=== PATIENT | male | born 1990 | race Two or more races ===

== ENCOUNTER 2016-11-07 12:10 | Outpatient (CLI) | payer OTHER | END 2016-11-07 12:11 | disposition home or self-care (01) | DX: M47.814 Spondylosis without myelopathy or radiculopathy, thoracic region (principal); M51.45 Schmorl's nodes, thoracolumbar region; M51.44 Schmorl's nodes, thoracic region; M51.36 Other intervertebral disc degeneration, lumbar region; M47.816 Spondylosis without myelopathy or radiculopathy, lumbar region; M43.16 Spondylolisthesis, lumbar region ==

== ENCOUNTER 2016-11-23 06:46 | Emergency (ER) | payer OTHER ==
[2016-11-23] MEDS ORDERED: ONDANSETRON ODT 4 MG TABLET TL STA (07:13)
[2016-11-23] MEDS ORDERED: ONDANSETRON ODT 4 MG TABLET ONE (07:19)
== END 2016-11-23 08:05 | disposition home or self-care (01) ==
DX: K29.21 Alcoholic gastritis with bleeding (principal); F17.200 Nicotine dependence, unspecified, uncomplicated
CPT/HCPCS: 36415; 80053; 83690; 85025; 99283; 99284; Q0162

== ENCOUNTER 2017-12-17 22:31 | Emergency (ER) | payer OTHER ==
--- NOTE | 2017-12-17 23:05 | XRAY Report ---
EXAM: LEFT ANKLE RADIOGRAPHY EXAM DATE: 12/17/2017 10:54 PM. CLINICAL HISTORY: Inverted ankle during volleyball, pain COMPARISON: None. TECHNIQUE: 3 views. FINDINGS: Bones: Normal. No fractures or bone lesions. Joints: Normal. No effusion. No subluxations. The ankle mortise is normally aligned. Soft Tissues: Lateral soft tissue swelling. IMPRESSION: Mild lateral soft tissue swelling without evidence of a displaced fracture. [facility] Referring Provider Line: [phone] SITE ID: [id number]
--- NOTE | 2017-12-17 23:05 | XRAY Preliminary Report ---
Exam: XR ANKLE 3 VIEW LT IMPRESSION: Mild lateral soft tissue swelling without evidence of a displaced fracture. [facility] SITE ID: [id number]
[2017-12-18] MEDS ORDERED: IBUPROFEN 600 MG TABLET PO STA (00:20)
[2017-12-18 00:26] VITALS: BP 112/72
--- NOTE | 2017-12-18 00:43 | ED Physician Documentation ---
PD HPI LOWER EXT INJURY - Stated complaint Stated Complaint: L ANKLE INJURY - Chief complaint Chief Complaint: Trauma Ext - History obtained from History obtained from: Patient, Family - History of Present Illness PD HPI LOW EXT INJURY LOCATION: Left, Ankle Type of injury: Twist Where injury occurred: Park Timing - onset: Today Timing - details: Abrupt onset Worsened by: Moving, Palpating Similar symptoms before: Has not had sx before Recently seen: Not recently seen - Additional information Additional information: Patient is a 26 year old male with no significant past medical history who is presenting to the emergency department for ankle pain. Patient states that he was playing volleyball and he tried to stop and somebody ran into him and he twisted his ankle. patient denies any other trauma. Review of Systems Ten Systems: 10 systems reviewed and negative Musculoskeletal: reports: Extremity pain, Joint pain, Extremity swelling, Joint swelling PD PAST MEDICAL HISTORY - Past Medical History Past Medical History: Yes Musculoskeletal: Chronic back pain - Past Surgical History Past Surgical History: No - Present Medications Home Medications: Ambulatory Orders Medication Instructions Recorded Confirmed No Known Home Medications [No 12/18/17 12/18/17 Known Home Medications] - Allergies Allergies/Adverse Reactions: Allergies Allergy/AdvReac Type Severity Reaction Status Date / Time Penicillins Allergy Rash Verified 12/17/17 22:45 - Social History Does the pt smoke?: Yes Smoking Status: Current every day smoker Does the pt drink ETOH?: Yes Does the pt have substance abuse?: No - Immunizations Immunizations are current?: Yes - POLST Patient has POLST: No PD ED PE NORMAL - General General: Alert and oriented X 3, No acute distress - HEENT HEENT: Atraumatic - Cardiac Cardiac: RRR - Respiratory Respiratory: No respiratory distress - Derm Derm: Normal color, No rash - Neuro Neuro: Alert and oriented X 3, No motor deficit PD ED PE EXPANDED - Extremities Extremities: Left ankle (tenderness to palpation near lateral maleolus), Motor intact, Sensory intact, Vascular intact Results - Vitals Vitals: Vital Signs - 24 hr 12/17/17 12/18/17 22:42 00:25 Temperature 37.1 C Heart Rate 72 81 Respiratory 16 16 Rate Blood Pressure 128/86 H 112/72 O2 Saturation 99 97 Oxygen O2 Source Room air - Rads (name of study) ankle x-ray Radiology: Final report received (normal) PD MEDICAL DECISION MAKING - ED course Complexity details: reviewed old records, reviewed results, re-evaluated patient , considered differential, d/w patient ED course: Patient was seen and examined at bedside. patient had already gone to imaging and the results were reviewed. there was no acute fracture or dislocation. Patient was placed in an sandrine bandage, given ice and ibuprofen. Patient required no further work up and was stable for discharge with outpatient follow up. Departure - Departure Disposition: Home, Self Care Clinical Impression: Ankle injury Condition: Good Instructions: ED Sprain Ankle W X Ray Follow-Up: DIDI DEVI PA-C [Primary Care Provider] - As Needed Comments: Your diagnostics today were within normal limits. There is no acute fracture or dislocation. you should ice your ankle and alternate between motrin and tylenol as needed for pain. You should follow up with your doctor if your symptoms don't improve in the next few days. You may return to the emergency department at any time for new, worsening or uncontrollable symptoms. Discharge Date/Time: 12/18/17 00:40
== END 2017-12-18 00:40 | disposition home or self-care (01) ==
LOC: ED 22:31
DX: S99.912A Unspecified injury of left ankle, initial encounter (principal); X50.1XXA Overexertion from prolonged static or awkward postures, initial encounter; Y92.830 Public park as the place of occurrence of the external cause; Y93.68 Activity, volleyball (beach) (court); F17.200 Nicotine dependence, unspecified, uncomplicated
CPT/HCPCS: 73610; 99283; A9270

== ENCOUNTER 2018-02-20 09:00 | Emergency (ER) | payer OTHER ==
[2018-02-20] MEDS: SODIUM CHLORIDE 0.9% 1,000 ML IV ONE ×2 (09:33→10:25)
[2018-02-20 09:41] LABS: BILIRUBIN,URINE NEGATIVE (NEGATIVE); GLUCOSE, URINE (UA) NEGATIVE (NEGATIVE); KETONES,URINE (UA) 15 mg/dL (NEGATIVE); LEUKOCYTE ESTERASE, URINE NEGATIVE (NEGATIVE); NITRITE,URINE NEGATIVE (NEGATIVE); OCCULT BLOOD,URINE NEGATIVE (NEGATIVE); PH,URINE >=9.0 PH (5.0-7.5); PROTEIN,URINE 30 mg/dL (NEGATIVE); UROBILINOGEN,URINE 0.2 (NORMAL) E.U./dL (NORMAL)
[2018-02-20 09:49] LABS: CLARITY,URINE CLEAR (CLEAR)
[2018-02-20 09:51] LABS: BACTERIA,URINE Moderate /HPF (None Seen); RBC,URINE 0-5 /HPF (0-5); SQUAMOUS EPITHELIAL CELL,UR NONE SEEN (<= Few)
[2018-02-20 09:52] LABS: MUCUS,URINE Few Strands
[2018-02-20] MEDS ORDERED: SODIUM CHLORIDE 0.9% 1,000 ML IV ONE (09:54)
[2018-02-20 09:55] LABS: BASOPHILS # (AUTO) 0.1 10^3/uL (0.0-0.1); BASOPHILS % (AUTO) 0.6 %; EOSINOPHILS % (AUTO) 0.2 %; HGB - HEMOGLOBIN 16.2 g/dL (14.0-18.0); LYMPHOCYTES # (AUTO) 0.4 10^3/uL (1.5-3.5); LYMPHOCYTES % (AUTO) 4.5 %; MEAN CORPUSCULAR HEMOGLOBIN 30.6 pg (27.0-31.0); MEAN CORPUSCULAR HGB CONC 33.8 g/dL (32.0-36.0); MEAN CORPUSCULAR VOLUME 90.6 fL (80.0-94.0); MONOCYTES # (AUTO) 0.4 10^3/uL (0.0-1.0); MONOCYTES % (AUTO) 4.3 %; NEUTROPHILS # (AUTO) 8.2 10^3/uL (1.5-6.6); NEUTROPHILS % (AUTO) 90.4 %; PLT - PLATELET COUNT 193 10^3/uL (130-450); RED CELL DISTRIBUTION WIDTH 12.5 % (12.0-15.0); WHITE BLOOD COUNT 9.1 x10^3/uL (4.8-10.8)
--- NOTE | 2018-02-20 09:58 | ED Physician Documentation ---
PD HPI NVD - Stated complaint Stated Complaint: N/V/D - Chief complaint Chief Complaint: Abd Pain - History obtained from History obtained from: Patient - History of Present Illness Timing - onset: How many days ago (6) Timing - details: Still present Contributing factors: Travel (to [place].) Similar symptoms before: Has not had sx before - Additonal information Additional information: Patient is a 27-year-old old [employer] male who presents with vomiting and diarrhea. He reports vomiting intermittently for the past 6 days, starting when he was in [place]. He has had diarrhea for the past 2 days. He denies abdominal pain, fever, dysuria. He reports lightheadedness when standing. 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 He reports feeling quite stressed about having his daughters for the summer, stating he is worried about whether or not he is doing the right things for them. He denies history of similar symptoms in the past. Review of Systems Constitutional: denies: Fever Ears: denies: Tinnitus/ringing Nose: denies: Congestion Throat: denies: Sore throat Cardiac: denies: Chest pain / pressure Respiratory: denies: Dyspnea, Cough GI: reports: Nausea, Vomiting, Diarrhea. denies: Abdominal Pain : denies: Dysuria Skin: denies: Rash Musculoskeletal: denies: Back pain Neurologic: denies: Focal weakness, Numbness, Headache PD PAST MEDICAL HISTORY - Past Medical History Past Medical History: No Endocrine/Autoimmune: None Musculoskeletal: Chronic back pain - Past Surgical History Past Surgical History: No - Present Medications Home Medications: Ambulatory Orders Medication Instructions Recorded Confirmed Promethazine [Phenergan] 25 - 50 mg PO Q6H PRN #10 tab 02/20/18 raNITIdine [Zantac] 150 mg PO BID #30 tablet 02/20/18 - Allergies Allergies/Adverse Reactions: Allergies Allergy/AdvReac Type Severity Reaction Status Date / Time Penicillins Allergy Rash Verified 02/20/18 09:06 - Social History Does the pt smoke?: Yes Smoking Status: Current every day smoker Does the pt drink ETOH?: No Does the pt have substance abuse?: No - Immunizations Immunizations are current?: Yes - POLST Patient has POLST: No PD ED PE NORMAL - Vitals Vital signs reviewed: Yes (normal) - General General: Alert and oriented X 3, Well developed/nourished, Other (Appears fatigued.) - HEENT HEENT: Atraumatic, Pharynx benign - Neck Neck: Supple, no meningeal sign, No adenopathy - Cardiac Cardiac: RRR, No murmur - Respiratory Respiratory: No respiratory distress, Clear bilaterally - Abdomen Abdomen: Normal bowel sounds, Soft, Non tender, No organomegaly - Back Back: No CVA TTP - Derm Derm: No rash - Extremities Extremities: No edema, No calf tenderness / cord - Neuro Neuro: Alert and oriented X 3, No motor deficit, Normal speech Results - Vitals Vitals: Vital Signs - 24 hr 02/20/18 09:04 Temperature 36.8 C Heart Rate 85 Respiratory 18 Rate Blood Pressure 123/75 O2 Saturation 97 Oxygen O2 Source Room air - Labs Labs: Laboratory Tests 02/20/18 02/20/18 02/20/18 09:30 09:50 09:50 WBC 9.1 RBC 5.30 Hgb 16.2 Hct 48.0 MCV 90.6 MCH 30.6 MCHC 33.8 RDW 12.5 Plt Count 193 MPV 9.0 Neut # (Auto) 8.2 H Lymph # (Auto) 0.4 L [place] # (Auto) 0.4 Eos # (Auto) 0.0 Baso # (Auto) 0.1 Absolute Nucleated RBC 0.00 Nucleated RBC % 0.0 Sodium 138 Potassium 4.0 Chloride 101 Carbon Dioxide 26 Anion Gap 11.0 BUN 17 Creatinine 0.9 Estimated GFR (MDRD) 100 Glucose 129 H Calcium 9.0 Total Bilirubin 1.4 H AST 19 ALT 29 Alkaline Phosphatase 73 Total Protein 7.1 Albumin 4.3 Globulin 2.8 Albumin/Globulin Ratio 1.5 Lipase 18 L Urine Color DARK YELLOW Urine Clarity CLEAR Urine pH >=9.0 H Ur Specific [place] 1.015 Urine Protein 30 H Urine Glucose (UA) NEGATIVE Urine Ketones 15 H Urine Occult Blood NEGATIVE Urine Nitrite NEGATIVE Urine Bilirubin NEGATIVE Urine Urobilinogen 0.2 (NORMAL) Ur Leukocyte Esterase NEGATIVE Urine RBC 0-5 Urine WBC 0-3 Ur Squamous Epith Cells NONE SEEN Urine Bacteria Moderate H Urine Mucus Few Strands Ur Microscopic Review INDICATED Urine Culture Comments INDICATED PD MEDICAL DECISION MAKING - ED course Complexity details: reviewed results, re-evaluated patient, considered differential, d/w patient ED course: The patient's presentation is significant for vomiting and diarrhea, which is likely caused by viral etiology. Complicating the patient's presentation, however, is significant stress related to the care of his 3 daughters who he has for the summer, having picked them up from his ex- in [place] earlier this week. He has a past history of gastritis, and I suspect his current symptoms are associated with recurrent gastric distress. His laboratory evaluation is unremarkable. Treatment in the emergency department included administration of normal saline 2 L IV, and Zofran 4 mg IV. He felt subjectively improved by the time of discharge. He is being discharged with prescriptions for ranitidine and for Phenergan. I discussed with him symptomatic treatment, outpatient follow-up, as well as potentially worrisome signs or symptoms that should prompt reevaluation in the emergency department. [place] - Sepsis Event Vital Signs: Vital Signs - 24 hr 02/20/18 09:04 Temperature 36.8 C Heart Rate 85 Respiratory 18 Rate Blood Pressure 123/75 O2 Saturation 97 Oxygen O2 Source Room air Departure - Departure Disposition: 01 Home, Self Care Clinical Impression: Stress reaction, Dehydration Vomiting Qualifiers: Vomiting type: unspecified Vomiting Intractability: non-intractable Nausea presence: with nausea Qualified Code(s): R11.2 - Nausea with vomiting, unspecified Diarrhea Qualifiers: Diarrhea type: unspecified type Qualified Code(s): R19.7 - Diarrhea, unspecified Condition: Stable Instructions: ED Stress React, ED Diet Vomiting Diarrhea Follow-Up: TRESSA Engle [Provider Group] Prescriptions: Promethazine [Phenergan] 25 - 50 mg PO Q6H PRN #10 tab PRN Reason: Nausea / Vomiting raNITIdine [Zantac] 150 mg PO BID #30 tablet Comments: Take ranitidine twice daily as prescribed. You can use Phenergan as prescribed as needed for nausea. Drink plenty of fluids. Follow-up with your primary physician within 1-2 weeks. Call to schedule appointment. Return to the emergency department if you develop increasing abdominal pain, persistent vomiting, recurrent dehydration, or otherwise worsening symptoms.
[2018-02-20 10:10] LABS: ALBUMIN 4.3 g/dL (3.2-5.5); ALBUMIN/GLOBULIN RATIO 1.5 (1.0-2.2); BILIRUBIN,TOTAL 1.4 mg/dL (0.2-1.0); CREATININE 0.9 mg/dL (0.6-1.2); TOTAL PROTEIN 7.1 g/dL (6.7-8.2)
[2018-02-20] MEDS ORDERED: ONDANSETRON 4 MG/2 ML VIAL IVP STA (10:21)
[2018-02-20 11:22] VITALS: BP 127/75
== END 2018-02-20 11:26 | disposition home or self-care (01) ==
LOC: ED 09:00
DX: E86.0 Dehydration (principal); F43.9 Reaction to severe stress, unspecified; R11.2 Nausea with vomiting, unspecified; R19.7 Diarrhea, unspecified; F17.200 Nicotine dependence, unspecified, uncomplicated
CPT/HCPCS: 36415; 80053; 81001; 81003; 83690; 85025; 87086; 96361; 96374; 99283

== ENCOUNTER 2019-07-08 17:57 | Emergency (ER) | payer OTHER ==
[2019-07-08 18:06] VITALS: BP 142/94
--- NOTE | 2019-07-08 18:28 | ED Physician Documentation ---
PD HPI UPPER EXT INJURY - Stated complaint Stated Complaint: RT MIDDLE FINGER PX - Chief complaint Chief Complaint: Ext Problem - History obtained from History obtained from: Patient - History of Present Illness Location: Right (Cut his finger about a month ago. It was stitched. He has a swollen red area on the dorsum of the knuckle where the stitches were. No fevers.) Review of Systems Constitutional: reports: Reviewed and negative Throat: reports: Reviewed and negative Cardiac: reports: Reviewed and negative Respiratory: reports: Reviewed and negative PD PAST MEDICAL HISTORY - Past Medical History Past Medical History: Yes Endocrine/Autoimmune: None Musculoskeletal: Chronic back pain - Past Surgical History Past Surgical History: No - Present Medications Home Medications: Ambulatory Orders Medication Instructions Recorded Confirmed Promethazine [Phenergan] 25 - 50 mg PO Q6H PRN #10 tab 02/20/18 raNITIdine [Zantac] 150 mg PO BID #30 tablet 02/20/18 Clindamycin HCl [Clindamycin 300MG 300 mg PO Q6H #28 capsule 07/08/19 CAP] - Allergies Allergies/Adverse Reactions: Allergies Allergy/AdvReac Type Severity Reaction Status Date / Time Penicillins Allergy Rash Verified 07/08/19 18:05 - Social History Does the pt smoke?: Yes Smoking Status: Current every day smoker Does the pt drink ETOH?: No Does the pt have substance abuse?: No - Immunizations Immunizations are current?: Yes - POLST Patient has POLST: No PD ED PE NORMAL - Vitals Vital signs reviewed: Yes - General General: Alert and oriented X 3, No acute distress - Extremities Extremities: Other (Mild redness over dorsum of R middle finger at DIP. He does have a jackeline finger.) - Neuro Neuro: Alert and oriented X 3, Normal speech Results - Vitals Vitals: Vital Signs - 24 hr 07/08/19 18:03 Temperature 37 C Heart Rate 107 H Respiratory 16 Rate Blood Pressure 142/94 H O2 Saturation 100 Oxygen O2 Source Room air PD MEDICAL DECISION MAKING - ED course ED course: Placed in a jackeline finger splint. Nothing apparent to I/D right now. Departure - Departure Disposition: 01 Home, Self Care Clinical Impression: Cellulitis of finger of right hand Mallet finger Qualifiers: Laterality: right Qualified Code(s): M20.011 - Mallet finger of right finger(s) Condition: Good Record reviewed to determine appropriate education?: Yes Instructions: Cellulitis Dc Prescriptions: Clindamycin HCl [Clindamycin 300MG CAP] 300 mg PO Q6H #28 capsule Comments: Keep the splint on to hopefully let your tendon heal. Take the antibiotics as prescribed. Return with work if worse. 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
== END 2019-07-08 18:30 | disposition home or self-care (01) ==
LOC: ED 17:57
DX: L03.011 Cellulitis of right finger (principal); M20.011 Mallet finger of right finger(s); F17.200 Nicotine dependence, unspecified, uncomplicated
CPT/HCPCS: 99282; 99283

== ENCOUNTER 2020-09-15 02:49 | Emergency (ER) | payer OTHER ==
--- NOTE | 2020-09-15 02:55 | ED Physician Documentation ---
PD HPI ABD PAIN - Stated complaint Stated Complaint: ABD PX - History obtained from History obtained from: Patient - History of Present Illness Timing - onset: How many days ago (3) Timing - duration: Days Timing - details: Gradual onset, Waxing and waning Pain level now: 6 Quality: Pain Location: Epigastric Radiation: Other (does not radiate) Improved by: Vomiting Worsened by: Palpation Associated symptoms: Nausea, Vomiting. No: Fever, Diarrhea, Constipation Similar symptoms before: Has not had sx before Recently seen: Not recently seen - Additional information Additional information: c/o 3 days of epigastric pain with nausea, vomiting. He drank some alcohol tonight but has not drank any alcohol in a few weeks, and is not a heavy nor regular drinker. He says he was scoped July 2019 and had been on GI medications (can only recall one of them was omeprazole), but that he has been off of these for several months as the symptoms had resolved. Review of Systems Constitutional: denies: Fever, Chills, Sweats Cardiac: reports: Reviewed and negative Respiratory: reports: Reviewed and negative GI: reports: Abdominal Pain, Nausea, Vomiting. denies: Abdominal Swelling, Constipation, Diarrhea, Hematemesis, Bloody / black stool : denies: Dysuria, Frequency PD PAST MEDICAL HISTORY - Past Medical History Endocrine/Autoimmune: None Musculoskeletal: Chronic back pain - Past Surgical History Past Surgical History: No - Present Medications Home Medications: Ambulatory Orders Medication Instructions Recorded Confirmed Lidocaine Viscous 2% [Xylocaine 15 ml PO Q4H PRN #1 bottle 09/15/20 Viscous 2%] Omeprazole Magnesium 20 mg PO DAILY #14 capsule. 09/15/20 Ondansetron Odt [Zofran] 4 mg TL Q6H PRN #14 tablet 09/15/20 - Allergies Allergies/Adverse Reactions: Allergies Allergy/AdvReac Type Severity Reaction Status Date / Time Penicillins Allergy Rash Verified 09/15/20 03:01 - Social History Does the pt smoke?: Yes Smoking Status: Current every day smoker Does the pt drink ETOH?: No Does the pt have substance abuse?: No - Immunizations Immunizations are current?: Yes - POLST Patient has POLST: No PD ED PE NORMAL - Vitals Vital signs reviewed: Yes - General General: Alert and oriented X 3, Well developed/nourished, Other (appears uncomfortable) - HEENT HEENT: Moist mucous membranes - Neck Neck: Supple, no meningeal sign - Cardiac Cardiac: RRR, No murmur - Respiratory Respiratory: No respiratory distress, Clear bilaterally - Abdomen Abdomen: Soft, Non distended, Other (moderate epigastric TTP without rebound or guarding, mild RUQ and RLQ tenderness without rebound or guarding) - Back Back: No CVA TTP - Derm Derm: Normal color, Warm and dry Results - Vitals Vitals: Vital Signs - 24 hr 09/15/20 09/15/20 09/15/20 02:57 03:00 03:11 Temperature 36.1 C L 36.1 C L Heart Rate 79 80 79 Respiratory 17 18 18 Rate Blood Pressure 127/83 H 121/83 H 127/83 H O2 Saturation 96 98 98 09/15/20 09/15/20 05:00 06:55 Temperature 36.8 C 36.7 C Heart Rate 69 68 Respiratory 14 16 Rate Blood Pressure 103/75 113/67 O2 Saturation 93 94 Oxygen O2 Source Room air - Labs Labs: Laboratory Tests 09/15/20 09/15/20 09/15/20 03:07 03:09 04:55 WBC 8.0 RBC 4.87 Hgb 15.5 Hct 45.0 MCV 92.4 MCH 31.8 H MCHC 34.4 RDW 11.7 L Plt Count 248 MPV 10.0 Neut # (Auto) 4.8 Lymph # (Auto) 2.2 [place] # (Auto) 0.6 Eos # (Auto) 0.2 Baso # (Auto) 0.1 Absolute Nucleated RBC 0.00 Nucleated RBC % 0.0 Sodium 139 Potassium 3.7 Chloride 103 Carbon Dioxide 26 Anion Gap 10.0 BUN 16 Creatinine 0.9 Estimated GFR (MDRD) 98 Glucose 125 H Calcium 9.2 Total Bilirubin 0.4 AST 22 ALT 38 Alkaline Phosphatase 54 Total Protein 7.1 Albumin 4.4 Globulin 2.7 Albumin/Globulin Ratio 1.6 Lipase 22 Urine Color YELLOW Urine Clarity CLEAR Urine pH 5.5 Ur Specific [place] <=1.005 Urine Protein NEGATIVE Urine Glucose (UA) NEGATIVE Urine Ketones NEGATIVE Urine Occult Blood NEGATIVE Urine Nitrite NEGATIVE Urine Bilirubin NEGATIVE Urine Urobilinogen 0.2 (NORMAL) Ur Leukocyte Esterase NEGATIVE Ur Microscopic Review NOT INDICATED Urine Culture Comments NOT INDICATED Ethyl Alcohol 161.5 - Rads (name of study) CT A/P with IV contrast Radiology: Prelim report reviewed, See rad report PD MEDICAL DECISION MAKING - ED course Complexity details: reviewed results, re-evaluated patient, considered differential, d/w patient ED course: On reevaluation after tests resulted, patient is asleep, easily awoken. He reports feeling much better. Results reviewed w/patient; no cause for symptoms found on these tests tonight, plan is to d/c with rx for PPI, viscous lidocaine and zofran, return if worse, f/u with PMD next available appointment. Patient is comfortable with this plan Departure - Departure Disposition: Home, Self Care Clinical Impression: Abdominal pain Qualifiers: Abdominal location: epigastric Qualified Code(s): R10.13 - Epigastric pain Condition: Good Instructions: ED Abdominal Pain Unkn Cause Follow-Up: Sim Alford MD [Primary Care Provider] - Within 1 week Prescriptions: Omeprazole Magnesium 20 mg PO DAILY #14 capsule. Lidocaine Viscous 2% [Xylocaine Viscous 2%] 15 ml PO Q4H PRN #1 bottle PRN Reason: Abdominal Pain Ondansetron Odt [Zofran] 4 mg TL Q6H PRN #14 tablet PRN Reason: Nausea / Vomiting Discharge Date/Time: 09/15/20 06:57
[2020-09-15] MEDS ORDERED: SODIUM CHLORIDE 0.9% 1,000 ML IV STA (03:36)
[2020-09-15] MEDS ORDERED: PANTOPRAZOLE 40 MG VIAL IVP STA (03:36)
[2020-09-15] MEDS ORDERED: MORPHINE 2 MG/ML CARPUJECT IVP STA (03:36)
[2020-09-15] MEDS ORDERED: ONDANSETRON 4 MG/2 ML VIAL IVP STA (03:36)
[2020-09-15 03:40] LABS: BASOPHILS # (AUTO) 0.1 10^3/uL (0.0-0.1); BASOPHILS % (AUTO) 0.9 %; EOSINOPHILS # (AUTO) 0.2 10^3/uL (0.0-0.7); EOSINOPHILS % (AUTO) 2.1 %; HGB - HEMOGLOBIN 15.5 g/dL (14.0-18.0); LYMPHOCYTES # (AUTO) 2.2 10^3/uL (1.5-3.5); LYMPHOCYTES % (AUTO) 28.1 %; MEAN CORPUSCULAR HEMOGLOBIN 31.8 pg (27.0-31.0); MEAN CORPUSCULAR HGB CONC 34.4 g/dL (32.0-36.0); MEAN CORPUSCULAR VOLUME 92.4 fL (80.0-94.0); MONOCYTES # (AUTO) 0.6 10^3/uL (0.0-1.0); MONOCYTES % (AUTO) 7.9 %; NEUTROPHILS # (AUTO) 4.8 10^3/uL (1.5-6.6); NEUTROPHILS % (AUTO) 60.7 %; PLT - PLATELET COUNT 248 10^3/uL (130-450); RED BLOOD COUNT 4.87 10^6/uL (4.70-6.10); RED CELL DISTRIBUTION WIDTH 11.7 % (12.0-15.0)
[2020-09-15 03:50] LABS: ALBUMIN 4.4 g/dL (3.2-5.5); ALBUMIN/GLOBULIN RATIO 1.6 (1.0-2.2); BILIRUBIN,TOTAL 0.4 mg/dL (0.2-1.0); CALCIUM 9.2 mg/dL (8.5-10.3); CREATININE 0.9 mg/dL (0.6-1.2); TOTAL PROTEIN 7.1 g/dL (6.7-8.2)
[2020-09-15] MEDS ORDERED: IOVERSOL 320 100 ML VIAL IVP ONE ×2 (03:52→04:19)
[2020-09-15 05:03] LABS: BILIRUBIN,URINE NEGATIVE (NEGATIVE); CLARITY,URINE CLEAR (CLEAR); GLUCOSE, URINE (UA) NEGATIVE (NEGATIVE); KETONES,URINE (UA) NEGATIVE (NEGATIVE); LEUKOCYTE ESTERASE, URINE NEGATIVE (NEGATIVE); NITRITE,URINE NEGATIVE (NEGATIVE); OCCULT BLOOD,URINE NEGATIVE (NEGATIVE); PH,URINE 5.5 PH (5.0-7.5); PROTEIN,URINE NEGATIVE (NEGATIVE); UROBILINOGEN,URINE 0.2 (NORMAL) E.U./dL (NORMAL)
[2020-09-15 06:57] VITALS: BP 113/67
--- NOTE | 2020-09-15 08:24 | CT Report ---
PROCEDURE: Abdomen/Pelvis W INDICATIONS: A 29-year-old man with abdominal pain. CONTRAST: IV CONTRAST: Optiray 320 ml: 100 PO CONTRAST: *NO PO CONTRAST TECHNIQUE: After the administration of 2 mm contrast, 5 mm thick sections acquired from the diaphragms to the sy mphysis. 5 mm thick coronal and sagittal reformats were acquired. For radiation dose reduction, the following was used: automated exposure control, adjustment of mA and/or kV according to patient siz e. COMPARISON: None. FINDINGS: Image quality: Excellent. ABDOMEN: Lung bases: Lung bases are clear. Heart size is normal. There is a small hiatal hernia. Solid organs: Mild hepatic steatosis. Liver and spleen are normal in size and enhancement. Gallblad larry is normal. Biliary system is non dilated. Pancreas enhances normally. No adrenal nodules. Kid neys demonstrate normal size and enhancement, without hydronephrosis. Peritoneum and bowel: Bowel loops demonstrate normal wall thickness and caliber. No free fluid or a ir. Nodes and vessels: No retroperitoneal or mesenteric adenopathy by size criteria. Aorta and inferior vena cava are normal in size. Miscellaneous: No ventral hernias. PELVIS: Genitourinary: Bladder wall thickness is normal. Miscellaneous: No inguinal hernias or adenopathy. Bones: No suspicious bony lesions. No vertebral body compression fractures. IMPRESSION: 1. No acute abnormalities in abdomen or pelvis. 2. Small hiatal hernia. No significant discrepancy with the preliminary interpretation. Reviewed by: Staci Albright MD on 09/15/2020 8:23 AM [facility] Approved by: Staci Albright MD on 09/15/2020 8:23 AM PST Station ID: [id number]
== END 2020-09-15 06:57 | disposition home or self-care (01) ==
LOC: ED 02:49
DX: R10.13 Epigastric pain (principal); F17.200 Nicotine dependence, unspecified, uncomplicated
CPT/HCPCS: 36415; 74177; 80053; 80320; 81003; 83690; 85025; 93005; 96361; 96374; 96375; 99284; Q9967; 81001; 87086

== ENCOUNTER 2021-06-27 07:07 | Emergency (ER) | payer OTHER ==
[2021-06-27 07:16] VITALS: BP 129/56
--- NOTE | 2021-06-27 07:28 | ED Physician Documentation ---
PD HPI DYSPNEA - Stated complaint Stated Complaint: SOA/LIGHTHEADED - Chief complaint Chief Complaint: Resp - History obtained from History obtained from: Patient - History of Present Illness Timing - onset: Today, How many days ago (5) Timing - onset during: Exertion Timing - duration: Minutes Timing - details: Abrupt onset (he felt lightheaded and some dyspnea while working out 5 days ago (last Friday) doing running, and again today doing running sprints. Fielding okay when rested.), Now resolved Inciting event(s): Exercise. No: Out of meds, URI Improved by: Rest Worsened by: Exertion Associated symptoms: Wheezing. No: Fever, Cough, Chest pain / discomfort Similar symptoms before: Diagnosis (he states symptoms similar to asthma symptoms he had as teenager, but has not had this for a long time.) Recently seen: Not recently seen Review of Systems Constitutional: denies: Fever, Chills Nose: denies: Rhinorrhea / runny nose, Congestion Throat: denies: Sore throat Cardiac: denies: Chest pain / pressure Respiratory: reports: Dyspnea, Wheezing. denies: Cough Neurologic: reports: Near syncope. denies: Generalized weakness, Syncope, Altered mental status, Headache Endocrine: denies: Weight loss, Weight gain PD PAST MEDICAL HISTORY - Past Medical History Past Medical History: Yes Cardiovascular: None Respiratory: None, Asthma (when younger/teenager, but not for 10 years or so) Neuro: None Endocrine/Autoimmune: None GI: None : None HEENT: None Psych: None Musculoskeletal: Chronic back pain Derm: None - Past Surgical History Past Surgical History: No - Present Medications Home Medications: Ambulatory Orders Medication Instructions Recorded Confirmed Lidocaine Viscous 2% [Xylocaine 15 ml PO Q4H PRN #1 bottle 09/15/20 Viscous 2%] Omeprazole Magnesium 20 mg PO DAILY #14 capsule. 09/15/20 Ondansetron Odt [Zofran] 4 mg TL Q6H PRN #14 tablet 09/15/20 Albuterol Sulf [Ventolin Hfa 1 - 2 puffs INH Q4HR PRN #1 inhaler 06/27/21 Inhaler] Albuterol Sulfate [Proair Hfa 2 - 3 puffs INH QID PRN #1 inhaler 06/27/21 Inhaler] - Allergies Allergies/Adverse Reactions: Allergies Allergy/AdvReac Type Severity Reaction Status Date / Time Penicillins Allergy Rash Verified 06/27/21 07:12 - Social History Does the pt smoke?: Yes Smoking Status: Current every day smoker Does the pt drink ETOH?: No Does the pt have substance abuse?: No - Immunizations Immunizations are current?: Yes - POLST Patient has POLST: No PD ED PE NORMAL - Vitals Vital signs reviewed: Yes - General General: Alert and oriented X 3, No acute distress, Well developed/nourished - HEENT HEENT: Pharynx benign - Neck Neck: Supple, no meningeal sign, No adenopathy - Cardiac Cardiac: RRR, No murmur - Respiratory Respiratory: No respiratory distress, Clear bilaterally - Abdomen Abdomen: Soft, Non tender - Derm Derm: Normal color, Warm and dry - Extremities Extremities: No edema, No calf tenderness / cord - Neuro Neuro: Alert and oriented X 3, No motor deficit, Normal speech Results - Vitals Vitals: Vital Signs - 24 hr 06/27/21 06/27/21 07:12 08:28 Temperature 36.5 C Heart Rate 102 H 86 Respiratory 18 18 Rate Blood Pressure 129/56 L O2 Saturation 95 Oxygen O2 Source Room air - EKG (time done) 07:17 Rate: Rate (enter#) (90) Rhythm: NSR [place]: Normal Intervals: Normal [place] QRS: Normal Ischemia: Normal ST segments. No: ST elevation c/w ischemia, ST depression - Labs Labs: Laboratory Tests 06/27/21 06/27/21 06/27/21 07:30 07:30 07:30 WBC 5.6 RBC 4.99 Hgb 15.9 Hct 46.1 MCV 92.4 MCH 31.9 H MCHC 34.5 RDW 12.0 Plt Count 262 MPV 10.5 Neut # (Auto) 3.8 Lymph # (Auto) 1.2 L [place] # (Auto) 0.4 Eos # (Auto) 0.1 Baso # (Auto) 0.0 Absolute Nucleated RBC 0.00 Nucleated RBC % 0.0 Sodium 141 Potassium 4.3 Chloride 106 Carbon Dioxide 26 Anion Gap 9.0 BUN 17 Creatinine 1.0 Estimated GFR (MDRD) 87 L Glucose 106 H Calcium 9.3 Magnesium 2.6 Total Bilirubin 0.5 AST 25 ALT 24 Alkaline Phosphatase 51 Troponin I High Sens 3.5 B-Natriuretic Peptide Total Protein 6.8 Albumin 4.7 Globulin 2.1 Albumin/Globulin Ratio 2.2 Lipase 24 06/27/21 07:30 WBC RBC Hgb Hct MCV MCH MCHC RDW Plt Count MPV Neut # (Auto) Lymph # (Auto) [place] # (Auto) Eos # (Auto) Baso # (Auto) Absolute Nucleated RBC Nucleated RBC % Sodium Potassium Chloride Carbon Dioxide Anion Gap BUN Creatinine Estimated GFR (MDRD) Glucose Calcium Magnesium Total Bilirubin AST ALT Alkaline Phosphatase Troponin I High Sens B-Natriuretic Peptide 8 Total Protein Albumin Globulin Albumin/Globulin Ratio Lipase - Rads (name of study) chest xray Radiology: Prelim report reviewed (no acute process), See rad report PD MEDICAL DECISION MAKING - ED course Complexity details: reviewed results (no acute findings. Presume EIA.), considered differential (consider exercise induced asthma. But need to eval for signs of CHF, cardiomyopathy, pnemonia, PTX, anemia, renal fialure, other concerns. ), d/w patient Departure - Departure Disposition: Home, Self Care Clinical Impression: Dyspnea on exertion, Light-headed feeling Condition: Stable Record reviewed to determine appropriate education?: Yes Instructions: ED Dyspnea Shortness of Breath Follow-Up: PABLO EDDY MD [Primary Care Provider] - Prescriptions: Albuterol Sulf [Ventolin Hfa Inhaler] 1 - 2 puffs INH Q4HR PRN #1 inhaler PRN Reason: Shortness Of Air/Wheezing Albuterol Sulfate [Proair Hfa Inhaler] 2 - 3 puffs INH QID PRN #1 inhaler PRN Reason: Dyspnea Comments: Hydrated. Your EKG, blood tests, chest x-ray are all good. Your heart rhythm is normal. No signs of pneumonia/collapsed lung/heart muscle injury/heart failure/anemia/electrolyte problems or kidney failure. I believe your symptoms are some reactive airway and most commonly from environmental irritation (asthma). Use the albuterol inhaler 2 to 3 puffs 4 times a day for the next several days to a week. Then decrease to as needed and in particular 20 to 30 minutes before exercise and see if your symptoms are improved. Follow-up with your primary care if not improved well over the next several days to a week or so. [facility] Discharge Date/Time: 06/27/21 09:53
[2021-06-27] MEDS ORDERED: ALBUTEROL 1 PUFF INH STA (08:02)
[2021-06-27 08:08] LABS: BASOPHILS % (AUTO) 0.7 %; EOSINOPHILS # (AUTO) 0.1 10^3/uL (0.0-0.7); EOSINOPHILS % (AUTO) 2.5 %; HCT - HEMATOCRIT 46.1 % (42.0-52.0); HGB - HEMOGLOBIN 15.9 g/dL (14.0-18.0); LYMPHOCYTES # (AUTO) 1.2 10^3/uL (1.5-3.5); LYMPHOCYTES % (AUTO) 20.7 %; MEAN CORPUSCULAR HEMOGLOBIN 31.9 pg (27.0-31.0); MEAN CORPUSCULAR HGB CONC 34.5 g/dL (32.0-36.0); MEAN CORPUSCULAR VOLUME 92.4 fL (80.0-94.0); MEAN PLATELET VOLUME 10.5 fL (7.4-11.4); MONOCYTES # (AUTO) 0.4 10^3/uL (0.0-1.0); MONOCYTES % (AUTO) 7.5 %; NEUTROPHILS # (AUTO) 3.8 10^3/uL (1.5-6.6); NEUTROPHILS % (AUTO) 68.2 %; PLT - PLATELET COUNT 262 10^3/uL (130-450); RED BLOOD COUNT 4.99 10^6/uL (4.70-6.10); WHITE BLOOD COUNT 5.6 x10^3/uL (4.8-10.8)
[2021-06-27 08:22] LABS: ALBUMIN 4.7 g/dL (3.2-5.5); ALBUMIN/GLOBULIN RATIO 2.2 (1.0-2.2); BILIRUBIN,TOTAL 0.5 mg/dL (0.2-1.0); CALCIUM 9.3 mg/dL (8.5-10.3); MAGNESIUM 2.6 mg/dL (1.7-2.8); POTASSIUM 4.3 mmol/L (3.5-5.0); TOTAL PROTEIN 6.8 g/dL (6.7-8.2)
--- NOTE | 2021-06-27 08:50 | XRAY Report ---
PROCEDURE: Chest 1 View X-Ray INDICATIONS: Chest pain TECHNIQUE: One view of the chest was acquired. COMPARISON: None. FINDINGS: Surgical changes and devices: None. Lungs and pleura: No pleural effusions or pneumothorax. Lungs are clear. Mediastinum: Mediastinal contours appear normal. Heart size is normal. Bones and chest wall: No suspicious bony lesions. Overlying soft tissues appear unremarkable. IMPRESSION: No acute cardiopulmonary process demonstrated radiographically. Reviewed by: Josse Garza MD on 06/27/2021 8:49 AM PDT Approved by: Josse Garza MD on 06/27/2021 8:49 AM PDT Station ID: [id number]
== END 2021-06-27 09:53 | disposition home or self-care (01) ==
LOC: ED 07:07
DX: R06.09 Other forms of dyspnea (principal); R42 Dizziness and giddiness; Z20.822 Contact with and (suspected) exposure to COVID-19; F17.200 Nicotine dependence, unspecified, uncomplicated
CPT/HCPCS: 36415; 80053; 83690; 83735; 83880; 84484; 85025; 93005; 94640; 99284